=== PATIENT | female | born 1965 | race Caucasian/White ===

== ENCOUNTER 2020-12-06 10:16 | Inpatient (IN) | payer MEDICAID ==
[~2020-12-06] VITALS: Ht 154.9 cm; Wt 67.6 kg
[2020-12-06 10:28] VITALS: Ht 154.9 cm; Wt 67.6 kg
[2020-12-06 11:25] LABS: BASOPHIL % 0.6 % (0.2-1.3); PLATELET COUNT 150 x10^3mcL (179-408)
[2020-12-06 11:31] LABS: RED CELL DISTRIBUTION WIDTH 14.9 % (12.3-17.7)
[2020-12-06 11:38] LABS: CARBON DIOXIDE 36.1 mmol/L (21-32); CHLORIDE SERUM 105 mmol/L (98-107); GFR1 > 60 mL/min; GLUCOSE SERUM 74 mg/dL (74-106); POTASSIUM SERUM 4.1 mmol/L (3.5-5.1); SODIUM SERUM 144 mmol/L (136-145)
[2020-12-06 11:42] LABS: ALBUMIN 3.7 g/dL (3.4-5.0); ALKALINE PHOSPHATASE 53 U/L (46-116); ALT/SGPT 28 U/L (14-59); AST/SGOT 63 U/L (15-37); BILIRUBIN TOTAL 0.51 mg/dL (0.20-1.00)
[2020-12-06 11:43] LABS: TOTAL PROTEIN, SERUM 8.4 g/dL (6.4-8.2)
[2020-12-06 12:47] LABS: UA SPECIFIC GRAVITY 1.025 (1.005-1.035); microscopic required? YES; urine erythrocyte TRACE (NEGATIVE)
[2020-12-06 13:56] LABS: CHOLESTEROL/HDL RATIO 3.1; MAGNESIUM 2.1 mg/dL (1.8-2.4); PHOSPHOROUS 3.6 mg/dL (2.5-4.9)
[2020-12-06 14:07] LABS: FREE T4 0.16 ng/dL (0.76-1.46)
[2020-12-06 14:31] LABS: FREE THYROXINE INDEX 0.1 ug/dL (1.4-4.5); T4(THYROXINE) < 0.5 ug/dL (4.7-13.3)
[2020-12-06 14:34] VITALS: BP 122/90
[2020-12-06 19:51] VITALS: BP 100/58
[2020-12-06 20:44] VITALS: BP 93/60
[2020-12-07 06:03] VITALS: BP 110/72
[2020-12-07 08:54] VITALS: BP 99/62
[2020-12-07 08:54] LABS: CALCIUM 8.5 mg/dL (8.5-10.1); CARBON DIOXIDE 38.2 mmol/L (21-32); CHLORIDE SERUM 105 mmol/L (98-107); CREATININE SERUM 0.9 mg/dL (0.6-1.0); GFR1 > 60 mL/min; GLUCOSE SERUM 82 mg/dL (74-106); POTASSIUM SERUM 3.7 mmol/L (3.5-5.1); SODIUM SERUM 146 mmol/L (136-145)
[2020-12-07 09:03] LABS: BASOPHIL % 0.3 % (0.2-1.3); PLATELET COUNT 155 x10^3mcL (179-408)
[2020-12-07 09:04] LABS: RED CELL DISTRIBUTION WIDTH 15.1 % (12.3-17.7)
[2020-12-07 12:10] VITALS: BP 112/62
[2020-12-07 16:48] VITALS: BP 115/65
[2020-12-07 21:26] VITALS: BP 104/75
[2020-12-08 04:55] VITALS: BP 108/67
[2020-12-08 07:25] LABS: BASOPHIL % 0.3 % (0.2-1.3); PLATELET COUNT 164 x10^3mcL (179-408)
[2020-12-08 07:44] LABS: RED CELL DISTRIBUTION WIDTH 14.9 % (12.3-17.7)
[2020-12-08 07:50] LABS: BILIRUBIN DIRECT 0.08 mg/dL (0.0-0.2); BILIRUBIN TOTAL 0.3 mg/dL (0.20-1.00); TOTAL PROTEIN, SERUM 7.8 g/dL (6.4-8.2)
[2020-12-08 07:54] LABS: CALCIUM 8.5 mg/dL (8.5-10.1); CARBON DIOXIDE 37.4 mmol/L (21-32); CHLORIDE SERUM 105 mmol/L (98-107); CREATININE SERUM 0.9 mg/dL (0.6-1.0); GFR1 > 60 mL/min; GLUCOSE SERUM 71 mg/dL (74-106); SODIUM SERUM 146 mmol/L (136-145)
[2020-12-08 07:55] LABS: ALBUMIN 3.3 g/dL (3.4-5.0)
[2020-12-08 08:53] VITALS: BP 127/81
[2020-12-08 11:45] VITALS: BP 110/77
[2020-12-08 16:57] VITALS: BP 119/82
[2020-12-08 20:39] VITALS: BP 127/72
[2020-12-09 05:40] VITALS: BP 125/85
[2020-12-09 07:12] LABS: BASOPHIL % 0.4 % (0.2-1.3); PLATELET COUNT 195 x10^3mcL (179-408)
[2020-12-09 07:57] LABS: ALBUMIN 3.5 g/dL (3.4-5.0); ALKALINE PHOSPHATASE 51 U/L (46-116); ALT/SGPT 22 U/L (14-59); AST/SGOT 52 U/L (15-37); BILIRUBIN TOTAL 0.43 mg/dL (0.20-1.00); C REACTIVE PROTEIN 1.3 mg/dL (<=0.9); CALCIUM 9.2 mg/dL (8.5-10.1); CHLORIDE SERUM 102 mmol/L (98-107); GFR1 > 60 mL/min; GLUCOSE SERUM 70 mg/dL (74-106); POTASSIUM SERUM 3.8 mmol/L (3.5-5.1); SODIUM SERUM 142 mmol/L (136-145)
[2020-12-09 07:59] LABS: TOTAL PROTEIN, SERUM 8.4 g/dL (6.4-8.2)
[2020-12-09 08:27] LABS: RED CELL DISTRIBUTION WIDTH 14.9 % (12.3-17.7)
[2020-12-09 08:45] LABS: rbc morphology (normal/abnorm) NORMAL (NORMAL)
[2020-12-09 10:02] VITALS: BP 117/81
[2020-12-09 13:05] VITALS: BP 111/81
[2020-12-09 20:52] VITALS: BP 130/87
[2020-12-10 05:25] VITALS: BP 138/75
[2020-12-10 07:07] LABS: BASOPHIL % 0.4 % (0.2-1.3); PLATELET COUNT 177 x10^3mcL (179-408)
[2020-12-10 07:30] LABS: ALKALINE PHOSPHATASE 43 U/L (46-116); ALT/SGPT 20 U/L (14-59); AST/SGOT 44 U/L (15-37); BILIRUBIN TOTAL 0.46 mg/dL (0.20-1.00); C REACTIVE PROTEIN 1.3 mg/dL (<=0.9); CALCIUM 8.8 mg/dL (8.5-10.1); CARBON DIOXIDE 37.8 mmol/L (21-32); CHLORIDE SERUM 100 mmol/L (98-107); CREATININE SERUM 0.9 mg/dL (0.6-1.0); GFR1 > 60 mL/min; GLUCOSE SERUM 68 mg/dL (74-106); POTASSIUM SERUM 3.5 mmol/L (3.5-5.1); SODIUM SERUM 142 mmol/L (136-145); TOTAL PROTEIN, SERUM 7.6 g/dL (6.4-8.2)
[2020-12-10 07:33] LABS: RED CELL DISTRIBUTION WIDTH 14.7 % (12.3-17.7)
[2020-12-10 07:46] LABS: ALBUMIN 3.3 g/dL (3.4-5.0)
[2020-12-10] MEDS ORDERED: ZINC SULFATE220 MG PO (08:25)
[2020-12-10] MEDS ORDERED: MUCINEX600 MG PO (08:26)
[2020-12-10] MEDS ORDERED: VITC PO (08:30)
[2020-12-10] MEDS ORDERED: ELIQUIS2.5 MG PO (08:31)
[2020-12-10] MEDS ORDERED: DECADRON6 MG PO (08:31)
[2020-12-10 09:04] VITALS: BP 136/85
[2020-12-10 12:28] VITALS: BP 98/64
[2020-12-10 16:43] VITALS: BP 117/79
[2020-12-10 20:30] VITALS: BP 101/63
[2020-12-11 05:19] VITALS: BP 122/78
[2020-12-11 08:35] VITALS: BP 107/63
[2020-12-11 09:27] LABS: ALBUMIN 3.2 g/dL (3.4-5.0); BILIRUBIN DIRECT 0.1 mg/dL (0.0-0.2); BILIRUBIN TOTAL 0.4 mg/dL (0.20-1.00); TOTAL PROTEIN, SERUM 7.6 g/dL (6.4-8.2)
[2020-12-11 13:12] VITALS: BP 90/59
[2020-12-11 17:30] VITALS: BP 111/74
[2020-12-11 21:16] VITALS: BP 116/61
[2020-12-12 05:42] VITALS: BP 116/66
[2020-12-12 08:51] VITALS: BP 107/57
[2020-12-12 13:10] VITALS: BP 109/73
[2020-12-12 18:37] VITALS: BP 110/70
[2020-12-12 19:29] VITALS: BP 116/73
[2020-12-13 04:57] VITALS: BP 141/88
[2020-12-13 10:17] VITALS: BP 105/67
[2020-12-13 13:41] VITALS: BP 120/79
[2020-12-13 17:22] VITALS: BP 106/32
[2020-12-13 19:19] VITALS: BP 103/63
[2020-12-14 05:15] VITALS: BP 121/73
[2020-12-14 08:07] VITALS: BP 93/57
[2020-12-14 12:26] VITALS: BP 105/88
[2020-12-14 14:56] VITALS: BP 105/88; BP 108/61
[2020-12-14 16:46] VITALS: BP 109/69
[2020-12-14 20:14] VITALS: BP 109/55
[2020-12-15 05:09] VITALS: BP 129/80; BP 91/67
[2020-12-15 08:11] VITALS: BP 111/58
[2020-12-15 11:48] VITALS: BP 108/61
== END 2020-12-15 15:31 | disposition home or self-care (01) | DRG 720 ==
LOC: ED 10:16 → DU 13:02
PROVIDERS: Emergency Medicine; Internal Medicine Critical Care Medicine; ADMIT Family Medicine; ATTEND Family Medicine
PROC: XW033E5 Introduction of Remdesivir Anti-infective into Peripheral Vein, Percutaneous Approach, New Technology Group 5 (ICD-10-PCS; principal; 2020-12-08)
DX: A41.89 Other specified sepsis (principal); U07.1 COVID-19; J96.01 Acute respiratory failure with hypoxia; J12.82 Pneumonia due to coronavirus disease 2019; E66.9 Obesity, unspecified; Z71.3 Dietary counseling and surveillance; I48.0 Paroxysmal atrial fibrillation; Z68.28 Body mass index [BMI] 28.0-28.9, adult; I11.0 Hypertensive heart disease with heart failure; I50.9 Heart failure, unspecified
CPT/HCPCS: 36600; 84439; 85378; 94150; G0378; J0456; J0696; J1100; J1644; J2270; J2765; J7040; J8597; U0003